=== PATIENT | female | born 1980 | race Caucasian/White ===

== ENCOUNTER 2019-06-03 12:49 | Outpatient (CLI) | payer OTHER, SELFPAY ==
[2019-06-03 16:39] LABS: TSH 2.93 uIU/mL (0.36-3.74)
== END 2019-06-03 13:09 ==
PROVIDERS: PCP Family Medicine; Visit Provider Family Medicine
DX: R53.83 Other fatigue (principal); R63.5 Abnormal weight gain; E03.8 Other specified hypothyroidism; R68.89 Other general symptoms and signs
CPT/HCPCS: 36415; 84443

== ENCOUNTER 2019-08-05 11:17 | Outpatient (CLI) | payer OTHER, SELFPAY ==
[2019-08-05 12:26] LABS: TSH 1.84 uIU/mL (0.36-3.74)
== END 2019-08-05 11:37 ==
PROVIDERS: PCP Family Medicine; Visit Provider Family Medicine
DX: E03.8 Other specified hypothyroidism (principal)
CPT/HCPCS: 36415; 84443

== ENCOUNTER 2020-01-06 14:53 | Outpatient (CLI) | payer OTHER, SELFPAY ==
[2020-01-06 15:23] LABS: Abs Immature Grans 0.02 k/cumm (0.0-0.09); Absolute Basophil Count 0.04 k/cumm (0.0-0.2); Absolute Eosinophil Count 0.16 k/cumm (0.0-0.7); Absolute Monocyte Count 0.58 k/cumm (0.11-0.7); Absolute Neutrophil Count 6.22 k/cumm (1.2-6.7); Basophils % 0.4; Eosinophils % 1.5; HCT 37.6 % (36.0-46.0); HGB 12.6 g/dL (12.0-15.5); Immature Grans % 0.2 %; Lymphocytes % 33.9; Mean Corp. HGB Concentration 33.5 g/dL (32.0-36.0); Mean Corpuscular Hemoglobin 30.5 pg (27.0-33.0); Mean Platelet Volume 9.7 fL (8.0-11.0); Monocytes % 5.5; Neutrophils % 58.5; Platelet Count 301 x1000/uL (130-400); RBC 4.13 m/cumm (4.00-5.20); RBC Distribution Width 12.2 % (11.7-14.6); White Blood Cell Count 10.62 k/cumm (4.4-10.8)
[2020-01-06 16:15] LABS: Iron 56 ug/dL (50-170)
[2020-01-06 16:43] LABS: Ferritin 43 ng/mL (8-252); TSH 3.38 uIU/mL (0.36-3.74); Vitamin B12 487 pg/mL (193-986)
[2020-01-06 16:46] LABS: Folate > 20.0 ng/mL (8.6-20.0)
== END 2020-01-06 15:13 ==
PROVIDERS: PCP Family Medicine; Visit Provider Family Medicine
DX: R53.83 Other fatigue (principal); D64.9 Anemia, unspecified
CPT/HCPCS: 36415; 82607; 82728; 82746; 83540; 84443; 85025

== ENCOUNTER 2020-03-30 01:39 | Outpatient (CLI) | payer OTHER, SELFPAY ==
--- NOTE | 2020-03-30 08:00 | ETT_ITS ---
APPROVED REPORT Exam: Exercise Treadmill Patient Location: Out-Patient Room/Bed: Stress Nurse: Ambika Boateng RN BMI: 37.11 Baseline Rhythm: Sinus Rhythm Indications: Fatigue. Medical History Cardiac Medications: Levothyroxine. Allergies: Cefpodoxime Exercise History: Physically active Lung Sounds: Clear to auscultation Heart Sounds: Regular Stress Test Details Test: Exercise stress testing was performed using a Jeffy protocol. Rest Stress HR Resting HR Supine: 70 bpm Max Heart Rate (APMHR): 182 bpm Resting HR Standin bpm Target HR (85% APMHR): 154 bpm Max HR Achieved: 164 bpm % of APMHR: 90 Recovery HR: 85 bpm HR response to stress: Normal HR response to stress BP Resting BP Supine: 122/70 mmHg Resting BP Standin/74 mmHg Max BP: 180/82 mmHg Recovery BP: 140/78 mmHg BP response to stress: Normal blood pressure response to stress. ECG Resting ECG: Sinus Rhythm Ectopy: none Stress ECG: Sinus Tachycardia ST Change: No significant ST segment changes Arrhythmia: VPC's Recovery ECG: Sinus Rhythm Recovery ST Change: No significant ST segment changes. Recovery Arrhythmia: None Clinical Reason for Termination: Fatigue Stress Symptoms: Leg Fatigue Exercise duration: 10 min30 sec Highest Stage Reached: Stage 4: 4.2 mph at 16% grade. Exercise capacity: 12.63 METs Functional Capacity: Above average capacity Stress ECG Conclusion 1. Patient exercised for 10 minutes (13 METS) rate-pressure product was 23,000. 2. Exercise was stopped due to leg fatigue. 3. There is no evidence of ischemia on the ECG portion of the exam. 4. The Elliott Score ( 11) estimates an annual cardiovascular mortality of 0% and a five year survival o f 96%. Using the Elliott Score there is a low probability of any angiographic coronary disease. Stress Test Summary STAGE Time (mins) Speed (mph) Grade (%) HR BP SYMPTOMS METS Supine 70 122/70 Standing 67 126/74 1 3 1.7 10 113 140/80 4.6 2 6 2.5 12 143 142/80 7 3 9 3.4 14 162 10.2 1 min recovery 111 180/90 3 min recovery 86 160/80 6 min recovery 85 140/78
== END 2020-03-30 01:59 ==
PROVIDERS: PCP Family Medicine; Visit Provider Family Medicine
DX: R53.83 Other fatigue (principal)
CPT/HCPCS: 93017

== ENCOUNTER 2020-09-08 03:20 | Outpatient (CLI) | payer OTHER, SELFPAY ==
[2020-09-08 07:59] LABS: Abs Immature Grans 0.04 10^3/uL (0.0-0.06); Absolute Basophil Count 0.06 10^3/uL (0.0-0.2); Absolute Eosinophil Count 0.21 10^3/uL (0.0-0.7); Absolute Lymphocyte Count 3.54 10^3/uL (1.2-3.4); Absolute Monocyte Count 0.54 10^3/uL (0.1-0.8); Absolute Neutrophil Count 4.84 10^3/uL (1.2-6.7); Basophils % 0.7; Eosinophils % 2.3; HCT 41.8 % (36.0-46.0); HGB 13.7 g/dL (11.2-15.7); Immature Grans % 0.4; Lymphocytes % 38.4; MCHC 32.8 % (32.0-36.0); MCV 91.5 fL (80-95); MPV 9.5 fL (8.0-11.0); Monocytes % 5.9; Neutrophils % 52.3; Nucleated RBC 0 %; Platelet Count 281 10^3/uL (130-400); RBC 4.57 10^6/uL (3.93-5.22); RDW 11.8 % (11.7-14.6); RDW-SD 39.5 fL; WBC 9.23 10^3/uL (4.4-10.8)
[2020-09-08 09:11] LABS: ALT 25 U/L (14-59); AST 15 U/L (15-37); Albumin 3.8 g/dL (3.4-5.0); Alkaline Phosphatase 96 U/L (46-116); Anion Gap 9.7 mmol/L (3-11); BUN 15 mg/dL (7-18); Bilirubin, Total 0.4 mg/dL (0.2-1.0); CO2 25.3 mmol/L (21.0-32.0); CREATININE 0.93 mg/dL (0.55-1.02); Calcium 9.1 mg/dL (8.5-10.1); Calculated LDL 143 mg/dL (<100); Chloride 103 mmol/L (98-107); Cholesterol 219 mg/dL (<200); Glucose 87 mg/dL (74-106); HDL Cholesterol 61 mg/dL (40-60); Potassium 4.3 mmol/L (3.5-5.1); Sodium 138 mmol/L (136-145); Total Protein 7.2 g/dL (6.4-8.2); Triglyceride 79 mg/dL (<150)
[2020-09-11 06:11] LABS: Vitamin D 25 Total 32.2 ng/ml (30-100)
== END 2020-09-08 03:40 ==
PROVIDERS: PCP Family Medicine; Visit Provider Family Medicine
DX: E03.9 Hypothyroidism, unspecified (principal); E55.9 Vitamin D deficiency, unspecified; H54.7 Unspecified visual loss; G43.109 Migraine with aura, not intractable, without status migrainosus
CPT/HCPCS: 36415; 80053; 80061; 82306; 84443; 85025

== ENCOUNTER 2020-09-18 00:28 | Outpatient (CLI) | payer OTHER, SELFPAY ==
--- NOTE | 2020-09-18 08:15 | DI.MRI_ITS ---
EXAM: MR BRAIN WO CLINICAL HISTORY: pt with new visual disturbance w and w/o headache,MIGRAINE,G43.109 TECHNIQUE: Multiplanar multisequence MRI of the brain was performed. COMPARISON: No exams were available for comparison FINDINGS: VENTRICLES AND EXTRA AXIAL SPACES: Normal in size and morphology for the patient's age. MIDLINE SHIFT: None. CEREBRAL PARENCHYMA: No focus of restricted diffusion to suggest acute infarct. No space-occupying le briana identified. HEMORRHAGE: None. BRAINSTEM/CEREBELLUM: Normal. CALVARIUM: Normal. VISUALIZED PARANASAL SINUSES/MASTOIDS:Clear. [place]: Normal flow void. PITUITARY GLAND: Unremarkable. OTHER FINDINGS: None. IMPRESSION: Unremarkable MRI of the brain. DATA REPOSITORY:
== END 2020-09-18 00:48 ==
PROVIDERS: PCP Family Medicine; Visit Provider Nurse Practitioner Adult Health
DX: G43.109 Migraine with aura, not intractable, without status migrainosus (principal); H53.9 Unspecified visual disturbance
CPT/HCPCS: 70551

== ENCOUNTER 2020-12-08 01:15 | Outpatient (CLI) | payer OTHER, SELFPAY ==
[2020-12-08 17:01] LABS: FREE T4 0.98 ng/dL (0.76-1.46)
[2020-12-08 18:02] LABS: TSH 2.45 uIU/mL (0.36-3.74)
== END 2020-12-08 01:16 | disposition home or self-care (01) ==
LOC: LBO 01:15
PROVIDERS: PCP Nurse Practitioner; Visit Provider Nurse Practitioner
DX: E03.9 Hypothyroidism, unspecified (principal)
CPT/HCPCS: 36415; 84439; 84443

== ENCOUNTER 2021-02-21 12:08 | Outpatient (REF) | payer OTHER, SELFPAY | END 2021-02-21 12:09 | disposition home or self-care (01) | LOC: LBN 12:08 | PROVIDERS: PCP Nurse Practitioner; Referring Provider Nurse Practitioner; Visit Provider Nurse Practitioner | DX: R35.0 Frequency of micturition (principal) | CPT/HCPCS: 87086 ==

== ENCOUNTER 2021-03-13 08:47 | Outpatient (CLI) | payer OTHER, SELFPAY ==
--- NOTE | 2021-03-13 08:30 | DI.RAD_ITS ---
Exam(s) XR KNEE LT 3V AP,LAT,MARGRET EXAM: XR KNEE LT 3V AP,LAT,MARGRET CLINICAL HISTORY: LEFT KNEE PAIN TECHNIQUE: COMPARISON: No exams were available for comparison FINDINGS: Three views were obtained. There is an ACL reconstruction with proximal tibial staple in place. Car tilaginous joint spaces are well preserved except for question slight narrowing medial tibiofemoral j oint space. No gross joint effusion identified on the lateral view. IMPRESSION: RADIATION DOSE DELIVERED: Total DLP
== END 2021-03-13 08:48 | disposition home or self-care (01) ==
LOC: DIORS 08:47
PROVIDERS: PCP Nurse Practitioner; Referring Provider Nurse Practitioner; Visit Provider Student in an Organized Health Care Education/Training Program
DX: M25.562 Pain in left knee (principal); Z98.890 Other specified postprocedural states
CPT/HCPCS: 73562

== ENCOUNTER 2021-03-19 02:26 | Outpatient (CLI) | payer OTHER, SELFPAY ==
--- NOTE | 2021-03-19 07:00 | DI.MRI_ITS ---
Exam(s) MR LOWER JOINT LT WO EXAM: MR LOWER JOINT LT WO CLINICAL HISTORY: Traumatic internal derangement,FAILED PT,M23.92 TECHNIQUE: Multiplanar multisequence MRI of the knee was performed. COMPARISON: CR XR KNEE LT 3V AP,LAT,MARGRET from 03/13/2021 FINDINGS: EFFUSION: Small amount of increased joint fluid. There is tiny chu cyst in popliteal fossa MARROW:There is artifact from tibial staple at the metaphysis-diaphysis junction in this patient has had prior ACL surgery. Small benign appearing bone lesion in the distal diaphysis of the femur is pr obably an enchondroma. There is no surrounding marrow edema. PATELLOFEMORAL COMPARTMENT: The quadriceps tendon is intact. The patellar ligament is intact. There is some signal abnormality in the retropatellar cartilage over the lateral facet with small fis sures therein. No abnormal intraosseous signal in the posterior patella. Cartilage over the medial facet is preserved.There is no intraosseous signal to suggest recent patellar dislocation. There are no patellar retinacular tears. CRUCIATE LIGAMENTS: There is an anterior cruciate ligament graft which appears intact. No obvious im pingement at the level of the inner aspect of the femoral condyles.The posterior cruciate ligament is intact. MEDIAL COMPARTMENT/MEDIAL MENISCUS: There are no tears of the medial meniscus evident.. There are no chondral defects, osteochondral defects, subarticular marrow edema, nor osteophytes evid ent. MEDIAL COLLATERAL LIGAMENT: Intact LATERAL COMPARTMENT/LATERAL MENISCUS: There is no evidence of lateral meniscal tear.Small focus of hurd barticular signal abnormality seen in the posterior aspect of the lateral tibial plateau consistent w ith small degenerative cyst at this level. ILIOTIBIAL BAND: Intact LATERAL COLLATERAL LIGAMENT COMPLEX: The fibular collateral ligament is intact. The biceps femoris t endon is intact.Popliteus muscle and tendon are intact. IMPRESSION: 1. Anterior cruciate graft appears intact. It does not display obvious abnormal signal. PCL is inta ct. MCL is intact. 2. No obvious meniscal tears evident. No obvious degenerative changes. No osteochondral defects. H owever, there is a small subarticular focus sub lab mallet E in the posterior aspect of the lateral t ibial plateau which probably developing degenerative subarticular cyst at this level. 3. Some signal abnormality and thinning in the retropatellar cartilage is noted over the lateral face t. 4. Small joint effusion and tiny Chu's cyst. DATA REPOSITORY:
== END 2021-03-19 02:46 ==
PROVIDERS: PCP Nurse Practitioner; Visit Provider Student in an Organized Health Care Education/Training Program
DX: M25.562 Pain in left knee (principal); M23.92 Unspecified internal derangement of left knee; M25.462 Effusion, left knee; M71.22 Synovial cyst of popliteal space [Baker], left knee
CPT/HCPCS: 73721

== ENCOUNTER 2022-02-11 02:40 | Outpatient (CLI) | payer OTHER, SELFPAY ==
[2022-02-11 08:59] LABS: Total Iron Binding Capacity 259 ug/dL (250-450)
[2022-02-11 09:25] LABS: ALT 18 U/L (14-59); AST 13 U/L (15-37); Albumin 3.9 g/dL (3.4-5.0); Alkaline Phosphatase 92 U/L (46-116); Anion Gap 10.9 mmol/L (3-11); BUN 18 mg/dL (7-18); Bilirubin, Total 0.5 mg/dL (0.2-1.0); CO2 25.1 mmol/L (21.0-32.0); CREATININE 0.9 mg/dL (0.55-1.02); Calcium 8.9 mg/dL (8.5-10.1); Calculated LDL 96 mg/dL (<100); Chloride 106 mmol/L (98-107); Cholesterol 159 mg/dL (<200); Ferritin 91 ng/mL (8-252); Glucose 80 mg/dL (74-106); HDL Cholesterol 55 mg/dL (40-60); Potassium 4.2 mmol/L (3.5-5.1); Sodium 142 mmol/L (136-145); TSH (W/Ref FT4) 2.38 uIU/mL (0.36-3.74); Total Protein 7.1 g/dL (6.4-8.2); Triglyceride 44 mg/dL (<150); Vitamin B12 490 pg/mL (193-986)
== END 2022-02-11 02:41 | disposition home or self-care (01) ==
LOC: LBO 02:40
PROVIDERS: PCP Nurse Practitioner; Visit Provider Nurse Practitioner
DX: I10 Essential (primary) hypertension (principal); E03.9 Hypothyroidism, unspecified; R53.83 Other fatigue
CPT/HCPCS: 36415; 80053; 80061; 82607; 82728; 83550; 84443

== ENCOUNTER 2022-11-11 16:02 | Outpatient (CLI) | payer OTHER, SELFPAY ==
[2022-11-11 15:59] LABS: Abs Immature Grans 0.05 10^3/uL (0.0-0.06); Absolute Basophil Count 0.06 10^3/uL (0.0-0.2); Absolute Lymphocyte Count 4.42 10^3/uL (1.2-3.4); Absolute Monocyte Count 0.58 10^3/uL (0.1-0.8); Basophils % 0.5; Eosinophils % 0.8; HCT 39.9 % (36.0-46.0); HGB 13.4 g/dL (11.2-15.7); Immature Grans % 0.4; Lymphocytes % 37.3; MCH 30.1 pg (27.0-33.0); MCHC 33.6 % (32.0-36.0); MCV 90 fL (80-95); MPV 9.4 fL (8.0-11.0); Monocytes % 4.9; Neutrophils % 56.1; Platelet Count 276 10^3/uL (130-400); RBC 4.45 10^6/uL (3.93-5.22); RDW 11.9 % (11.7-14.6); RDW-SD 38.5 fL; WBC 11.85 10^3/uL (4.4-10.8)
[2022-11-11 16:02] LABS: Absolute Eosinophil Count 0.09 10^3/uL (0.0-0.7); Absolute Neutrophil Count 6.65 10^3/uL (1.2-6.7)
[2022-11-11 16:38] LABS: Hemoglobin A1C 4.9 % (<5.7)
[2022-11-11 16:50] LABS: ALT 21 U/L (14-59); AST 16 U/L (15-37); Albumin 4.2 g/dL (3.4-5.0); Alkaline Phosphatase 106 U/L (46-116); Anion Gap 10.2 mmol/L (3-11); BUN 19 mg/dL (7-18); Bilirubin, Total 0.3 mg/dL (0.2-1.0); CO2 25.8 mmol/L (21.0-32.0); CREATININE 1.1 mg/dL (0.55-1.02); Chloride 103 mmol/L (98-107); Estimated GFR 64.74 (mL/min/1.73m2); Glucose 83 mg/dL (74-106); Sodium 139 mmol/L (136-145); TSH (W/Ref FT4) 3.28 uIU/mL (0.36-3.74); Total Protein 7.6 g/dL (6.4-8.2)
[2022-11-11 17:07] LABS: Vitamin D 25 Total 23.3 ng/mL (30-100)
[2022-11-13 10:42] LABS: Lyme Ab w Rflx to Lyme Confirm Negative (Negative)
[2022-11-13 16:47] LABS: Lab Add On Test DONE
[2022-11-13 17:05] LABS: FREE T4 1.13 ng/dL (0.76-1.46)
[2022-11-14 17:32] LABS: Anaplasma phagocytophilum Negative (Negative); B. miyamotoi PCR Negative (Negative); Babesia divergens/MO-1 Negative (Negative); Babesia duncani Negative (Negative); Babesia microti Negative (Negative); Ehrlichia chaffeensis Negative (Negative); Ehrlichia ewingii/canis Negative (Negative); Ehrlichia muris eauclairensis Negative (Negative)
[2022-11-14 18:37] LABS: T3,Free 3.6 pg/mL (2.8-5.3)
== END 2022-11-11 16:03 | disposition home or self-care (01) ==
LOC: LBO 16:02
PROVIDERS: PCP Nurse Practitioner; Visit Provider Nurse Practitioner
DX: E03.9 Hypothyroidism, unspecified (principal); E55.9 Vitamin D deficiency, unspecified; E66.9 Obesity, unspecified; I10 Essential (primary) hypertension; L65.9 Nonscarring hair loss, unspecified; R53.83 Other fatigue; J45.909 Unspecified asthma, uncomplicated
CPT/HCPCS: 36415; 80053; 82306; 87798; 83036; 83615; 84439; 84443; 84481; 85025; 86618

== ENCOUNTER 2022-12-13 02:06 | Outpatient (CLI) | payer OTHER, SELFPAY ==
[2022-12-13 09:21] LABS: FREE T4 1.16 ng/dL (0.76-1.46); TSH 1.48 uIU/mL (0.36-3.74)
[2022-12-13 19:18] LABS: T3,Free 4.2 pg/mL (2.8-5.3)
== END 2022-12-13 02:07 | disposition home or self-care (01) ==
LOC: LBO 02:06
PROVIDERS: PCP Nurse Practitioner; Visit Provider Nurse Practitioner
DX: E03.9 Hypothyroidism, unspecified (principal); E55.9 Vitamin D deficiency, unspecified
CPT/HCPCS: 36415; 82306; 84439; 84443; 84481

== ENCOUNTER 2022-12-31 02:35 | Outpatient (CLI) | payer OTHER, SELFPAY ==
[2022-12-31 09:02] LABS: Hemoglobin A1C 4.9 % (<5.7)
[2022-12-31 10:42] LABS: Vitamin B12 687 pg/mL (193-986)
[2022-12-31 17:55] LABS: CRP, High Sensitivity 8.95 mg/L (See Note)
[2022-12-31 19:26] LABS: Thyroglobulin Antibody 108 U/mL (<=60); Thyroperoxidase Antibody 31 U/mL (<=60)
[2023-01-01 09:25] LABS: Homocysteine 11.2 umol/L (5.0-13.9)
[2023-01-01 11:26] LABS: IgA 171 mg/dL (85-499); IgG 1014 mg/dL (610-1616)
[2023-01-01 20:43] LABS: Tissue Transglutaminase Ab IgA <1.2 U/mL
[2023-01-02 23:13] LABS: Gliadin (Deamidated) Ab, IgA <10.0 U; Gliadin (Deamidated) Ab, IgG <10.0 U
[2023-01-08 15:22] LABS: Resin T3 Uptake 30 % (22.5-37.0)
[2023-01-08 15:30] LABS: Resin T3 Uptake Ratio 1.03 (0.75-1.23)
== END 2022-12-31 02:36 | disposition home or self-care (01) ==
PROVIDERS: PCP Nurse Practitioner; Visit Provider Naturopath
DX: E03.9 Hypothyroidism, unspecified (principal); R14.3 Flatulence; K59.00 Constipation, unspecified
CPT/HCPCS: 36415; 82784; 83090; 83516; 84999; 86141; 82607; 83036; 86255; 86376; 86800

== ENCOUNTER 2023-01-21 03:03 | Outpatient (CLI) | payer OTHER, SELFPAY ==
[2023-01-23 15:18] LABS: TB Interpretation Negative (Negative); TB1 Ag minus Nil 0.02 IU/ml; TB2 Ag minus Nil 0.04 IU/mL
[2023-01-24 10:34] LABS: Hepatitis A Antibody IgM Negative (Negative); Hepatitis B Core Antibody Negative (Negative); Hepatitis B surface Ag Negative (Negative); Hepatitis C Ab w Rflx HCV PCR Negative (Negative)
== END 2023-01-21 03:04 | disposition home or self-care (01) ==
LOC: LBO 03:03
PROVIDERS: PCP Nurse Practitioner; Visit Provider Dermatology
DX: L63.8 Other alopecia areata (principal); Z79.899 Other long term (current) drug therapy
CPT/HCPCS: 36415; 86704; 86706; 86709; 86803; 87340; 86480

== ENCOUNTER 2023-03-06 01:39 | Outpatient (CLI) | payer OTHER, SELFPAY ==
[2023-03-06 15:03] LABS: Abs Immature Grans 0.02 10^3/uL (0.0-0.06); Absolute Basophil Count 0.05 10^3/uL (0.0-0.2); Absolute Eosinophil Count 0.18 10^3/uL (0.0-0.7); Absolute Lymphocyte Count 3.26 10^3/uL (1.2-3.4); Absolute Monocyte Count 0.54 10^3/uL (0.1-0.8); Absolute Neutrophil Count 6.03 10^3/uL (1.2-6.7); Basophils % 0.5; Eosinophils % 1.8; HCT 41.1 % (36.0-46.0); HGB 13.7 g/dL (11.2-15.7); Immature Grans % 0.2; Lymphocytes % 32.3; MCH 30.9 pg (27.0-33.0); MCHC 33.3 % (32.0-36.0); MCV 93 fL (80-95); MPV 9.8 fL (8.0-11.0); Monocytes % 5.4; Neutrophils % 59.8; Platelet Count 239 10^3/uL (130-400); RBC 4.44 10^6/uL (3.93-5.22); RDW 12.1 % (11.7-14.6); RDW-SD 41.1 fL; WBC 10.08 10^3/uL (4.4-10.8)
[2023-03-06 16:03] LABS: Anion Gap 9.5 mmol/L (3-11); BUN 15 mg/dL (7-18); C-Reactive Protein 1.11 mg/dL (0.0-0.3); CO2 25.5 mmol/L (21.0-32.0); CREATININE 1.1 mg/dL (0.55-1.02); Calcium 9.3 mg/dL (8.5-10.1); Chloride 103 mmol/L (98-107); Estimated GFR 64.74 (mL/min/1.73m2); Glucose 105 mg/dL (74-106); Potassium 3.8 mmol/L (3.5-5.1); Sodium 138 mmol/L (136-145)
[2023-03-06 16:16] LABS: FREE T4 0.93 ng/dL (0.76-1.46); TSH 1.14 uIU/mL (0.36-3.74)
[2023-03-06 21:58] LABS: T3,Free 4.4 pg/mL (2.8-5.3)
[2023-03-06 22:16] LABS: Fibrinogen 452 mg/dL (171-384)
== END 2023-03-06 01:40 | disposition home or self-care (01) ==
LOC: LBO 01:39
PROVIDERS: Internal Medicine; Naturopath; PCP Nurse Practitioner; Visit Provider Nurse Practitioner
DX: E66.8 Other obesity; E03.9 Hypothyroidism, unspecified; R79.82 Elevated C-reactive protein (CRP)
CPT/HCPCS: 36415; 80048; 85384; 84439; 84443; 84481; 85025; 86140

== ENCOUNTER 2023-06-19 05:17 | Outpatient (CLI) | payer OTHER, SELFPAY ==
[2023-06-19 11:11] LABS: FREE T4 0.86 ng/dL (0.76-1.46); TSH 1.49 uIU/mL (0.36-3.74)
[2023-06-19 18:42] LABS: Fibrinogen 425 mg/dL (171-384)
[2023-06-19 19:02] LABS: T3,Free 3.5 pg/mL (2.8-5.3)
[2023-06-19 19:45] LABS: Thyroglobulin Antibody <15 U/mL (<=60)
[2023-06-20 09:00] LABS: Homocysteine 9.5 umol/L (5.0-13.9)
[2023-06-23 18:48] LABS: Corn-Food IgE <0.10 kU/L (<0.70); Milk, IgE <0.10 kU/L (<0.70)
== END 2023-06-19 05:18 | disposition home or self-care (01) ==
LOC: LBO 05:17
PROVIDERS: PCP Nurse Practitioner; Visit Provider Naturopath
DX: E06.9 Thyroiditis, unspecified (principal); E66.8 Other obesity; R77.8 Other specified abnormalities of plasma proteins; E72.11 Homocystinuria; L63.9 Alopecia areata, unspecified
CPT/HCPCS: 36415; 83090; 85384; 86003; 84439; 84443; 84481; 86800

== ENCOUNTER 2023-08-01 03:29 | Outpatient (CLI) | payer OTHER, SELFPAY ==
[2023-08-01 09:42] LABS: FREE T4 0.82 ng/dL (0.76-1.46); TSH 0.32 uIU/mL (0.36-3.74)
[2023-08-01 18:22] LABS: T3,Free 3.5 pg/mL (2.8-5.3)
== END 2023-08-01 03:30 | disposition home or self-care (01) ==
LOC: LBO 03:29
PROVIDERS: PCP Nurse Practitioner; Visit Provider Internal Medicine
DX: E03.9 Hypothyroidism, unspecified (principal)
CPT/HCPCS: 36415; 84439; 84443; 84481

== ENCOUNTER 2023-09-15 04:17 | Outpatient (CLI) | payer OTHER, SELFPAY ==
[2023-09-15 22:28] LABS: Fibrinogen 463 mg/dL (171-384)
== END 2023-09-15 04:18 | disposition home or self-care (01) ==
LOC: LBO 04:17
PROVIDERS: PCP Nurse Practitioner; Visit Provider Naturopath
DX: R77.8 Other specified abnormalities of plasma proteins (principal)
CPT/HCPCS: 36415; 85384

== ENCOUNTER 2023-11-21 02:23 | Outpatient (CLI) | payer OTHER, SELFPAY ==
[2023-11-21 15:08] LABS: Vitamin D 25 Total 28.7 ng/mL (30-100)
[2023-11-21 22:29] LABS: CRP, High Sensitivity >15.00 mg/L (See Note)
== END 2023-11-21 02:24 | disposition home or self-care (01) ==
LOC: LBO 02:24
PROVIDERS: PCP Nurse Practitioner; Visit Provider Naturopath
DX: E55.9 Vitamin D deficiency, unspecified (principal); R79.82 Elevated C-reactive protein (CRP)
CPT/HCPCS: 36415; 82306; 86141

== ENCOUNTER 2024-02-10 10:49 | Outpatient (CLI) | payer OTHER, SELFPAY ==
[2024-02-10 15:28] LABS: C-Reactive Protein 2.27 mg/dL (<or=0.5)
[2024-02-10 22:28] LABS: Fibrinogen 412 mg/dL (171-384)
== END 2024-02-10 10:50 | disposition home or self-care (01) ==
LOC: LBO 10:50
PROVIDERS: PCP Nurse Practitioner; Visit Provider Naturopath
DX: E55.9 Vitamin D deficiency, unspecified (principal); R79.82 Elevated C-reactive protein (CRP)
CPT/HCPCS: 36415; 85384; 86140

== ENCOUNTER 2024-02-24 04:59 | Outpatient (CLI) | payer OTHER, SELFPAY ==
[2024-02-24 09:22] LABS: Calculated LDL 103 mg/dL (<100); Cholesterol 171 mg/dL (<200); HDL Cholesterol 56 mg/dL (40-60); Triglyceride 60 mg/dL (<150)
[2024-02-24 10:49] LABS: FREE T4 0.73 ng/dL (0.76-1.46)
[2024-02-24 18:23] LABS: T3,Free 3.3 pg/mL (2.8-5.3)
[2024-02-24 18:37] LABS: Thyroglobulin Antibody 201 U/mL (<=60); Thyroperoxidase Antibody <28 U/mL (<=60)
== END 2024-02-24 05:00 | disposition home or self-care (01) ==
LOC: LBO 04:59
PROVIDERS: Internal Medicine; Naturopath; PCP Nurse Practitioner; Visit Provider Nurse Practitioner
DX: Z13.220 Encounter for screening for lipoid disorders (principal)
CPT/HCPCS: 36415; 80061; 84439; 84481; 86376; 86800

== ENCOUNTER 2024-03-25 05:11 | Outpatient (CLI) | payer OTHER, SELFPAY ==
[2024-03-25 08:30] LABS: FREE T4 0.72 ng/dL (0.76-1.46); TSH 1.07 uIU/Ml (0.36-3.74)
== END 2024-03-25 05:12 | disposition home or self-care (01) ==
LOC: LBO 05:11
PROVIDERS: PCP Nurse Practitioner; Visit Provider Internal Medicine
DX: E03.9 Hypothyroidism, unspecified (principal)
CPT/HCPCS: 36415; 84439; 84443

== ENCOUNTER 2024-07-08 03:39 | Outpatient (CLI) | payer OTHER, SELFPAY ==
[2024-07-08 15:17] LABS: Calcium 9.2 mg/dL (8.5-10.1)
[2024-07-08 22:06] LABS: CRP, High Sensitivity 14.85 mg/L (See Note)
[2024-07-08 22:37] LABS: Fibrinogen 489 mg/dL (171-384)
[2024-07-08 22:38] LABS: Parathyroid Hormone,Intact 46 pg/mL (19-88)
== END 2024-07-08 03:40 | disposition home or self-care (01) ==
PROVIDERS: PCP Nurse Practitioner; Visit Provider Naturopath
DX: R93.89 Abnormal findings on diagnostic imaging of other specified body structures (principal); R79.82 Elevated C-reactive protein (CRP); Z68.34 Body mass index [BMI] 34.0-34.9, adult; R77.8 Other specified abnormalities of plasma proteins
CPT/HCPCS: 36415; 85384; 86141; 82310; 83970

== ENCOUNTER 2024-07-20 03:10 | Outpatient (CLI) | payer OTHER, SELFPAY ==
[2024-07-20 10:36] LABS: ALT 22 U/L (14-59); AST 14 U/L (15-37); Albumin 3.6 g/dL (3.4-5.0); Alkaline Phosphatase 72 U/L (46-116); Anion Gap 5.4 mmol/L (3-11); BUN 15 mg/dL (7-18); Bilirubin, Total 0.34 mg/dL (0.2-1.0); CO2 28.6 mmol/L (21.0-32.0); CREATININE 0.8 mg/dL (0.55-1.02); Calcium 9.1 mg/dL (8.5-10.1); Chloride 104 mmol/L (98-107); Estimated GFR 94.28 (mL/min/1.73m2); Glucose 86 mg/dL (74-106); Potassium 4.3 mmol/L (3.5-5.1); Sodium 138 mmol/L (136-145); TSH 1.12 uIU/Ml (0.36-3.74); Total Protein 6.8 g/dL (6.4-8.2)
[2024-07-20 11:16] LABS: Vitamin D 25 Total 42.7 ng/mL (30-100)
[2024-07-20 21:06] LABS: T3,Free 3.4 pg/mL (2.8-5.3)
[2024-07-20 22:20] LABS: Parathyroid Hormone,Intact 27 pg/mL (19-88)
== END 2024-07-20 03:11 | disposition home or self-care (01) ==
LOC: LBO 03:10
PROVIDERS: PCP Nurse Practitioner; Visit Provider Internal Medicine
DX: E21.5 Disorder of parathyroid gland, unspecified (principal); E03.9 Hypothyroidism, unspecified
CPT/HCPCS: 36415; 80053; 82306; 83525; 83970; 84439; 84443; 84481

== ENCOUNTER 2024-09-17 01:57 | Outpatient (CLI) | payer OTHER, SELFPAY ==
[2024-09-17 09:41] LABS: ESR 26 mm/hr (0-20)
[2024-09-17 18:30] LABS: Homocysteine 10.8 umol/L (5.0-13.9)
[2024-09-20 14:46] LABS: ANA Interpretation Negative (Negative)
== END 2024-09-17 01:58 | disposition home or self-care (01) ==
LOC: LBO 01:57
PROVIDERS: PCP Nurse Practitioner; Visit Provider Naturopath
DX: R79.82 Elevated C-reactive protein (CRP) (principal); E72.11 Homocystinuria; R77.8 Other specified abnormalities of plasma proteins
CPT/HCPCS: 36415; 83090; 85652; 86038

== ENCOUNTER 2024-11-26 02:17 | Outpatient (CLI) | payer OTHER, SELFPAY ==
[2024-11-26 10:01] LABS: ESR 20 mm/hr (0-20)
[2024-11-26 10:33] LABS: C-Reactive Protein 1.57 mg/dL (<or=0.5)
[2024-11-26 17:18] LABS: Fibrinogen 536 mg/dL (171-384)
== END 2024-11-26 02:18 | disposition home or self-care (01) ==
LOC: LBO 02:17
PROVIDERS: PCP Nurse Practitioner; Visit Provider Naturopath
DX: R79.82 Elevated C-reactive protein (CRP) (principal); R77.8 Other specified abnormalities of plasma proteins; L63.9 Alopecia areata, unspecified
CPT/HCPCS: 36415; 85384; 85652; 86140

== ENCOUNTER 2025-02-17 01:06 | Outpatient (CLI) | payer OTHER, SELFPAY ==
[2025-02-17 08:07] LABS: Abs Immature Grans 0.03 10^3/uL (0.0-0.06); Absolute Basophil Count 0.06 10^3/uL (0.0-0.2); Absolute Eosinophil Count 0.18 10^3/uL (0.0-0.7); Absolute Lymphocyte Count 2.32 10^3/uL (1.2-3.4); Absolute Monocyte Count 0.41 10^3/uL (0.1-0.8); Absolute Neutrophil Count 5.81 10^3/uL (1.2-6.7); Basophils % 0.7 %; HCT 39.8 % (36.0-46.0); HGB 13.3 g/dL (11.2-15.7); Immature Grans % 0.3 %; Lymphocytes % 26.3 %; MCH 30.4 pg (27.0-33.0); MCHC 33.4 % (32.0-36.0); MCV 91 fL (80-95); Monocytes % 4.7 %; Platelet Count 253 10^3/uL (130-400); RBC 4.38 10^6/uL (3.93-5.22); RDW 11.9 % (11.7-14.6); RDW-SD 39.8 fL; WBC 8.81 10^3/uL (4.4-10.8)
[2025-02-17 09:07] LABS: Calculated LDL 104 mg/dL (<100); Cholesterol 172 mg/dL (<200); HDL Cholesterol 58 mg/dL (>or=50); TSH (W/Ref FT4) 1.92 uIU/mL (0.36-3.74); Triglyceride 51 mg/dL (<150)
[2025-02-17 09:19] LABS: ALT 22 U/L (14-59); AST 13 U/L (15-37); Albumin 3.8 g/dL (3.4-5.0); Alkaline Phosphatase 81 U/L (46-116); Anion Gap 10.1 mmol/L (3-11); BUN 17 mg/dL (7-18); Bilirubin, Total 0.5 mg/dL (0.2-1.0); CO2 25.9 mmol/L (21.0-32.0); CREATININE 0.9 mg/dL (0.55-1.02); Calcium 9.2 mg/dL (8.5-10.1); Chloride 106 mmol/L (98-107); Estimated GFR 81.35 (mL/min/1.73m2); Glucose 96 mg/dL (74-106); Potassium 4.4 mmol/L (3.5-5.1); Sodium 142 mmol/L (136-145); Total Protein 6.9 g/dL (6.4-8.2); Vitamin D 25 Total 47 ng/mL (30-100)
[2025-02-17 17:48] LABS: Fibrinogen 451 mg/dL (171-384)
[2025-02-17 18:00] LABS: CRP, High Sensitivity >15.00 mg/L (See Note)
[2025-02-18 10:52] LABS: Insulin 16.6 uIU/mL (<29.0)
[2025-02-19 15:39] LABS: Apolipoprotein B, S 78 mg/dL
== END 2025-02-17 01:07 | disposition home or self-care (01) ==
LOC: LBO 01:06
PROVIDERS: PCP Nurse Practitioner; Visit Provider Naturopath
DX: L65.9 Nonscarring hair loss, unspecified (principal); E03.9 Hypothyroidism, unspecified; Z13.220 Encounter for screening for lipoid disorders; E55.9 Vitamin D deficiency, unspecified; J45.909 Unspecified asthma, uncomplicated; I10 Essential (primary) hypertension
CPT/HCPCS: 36415; 80053; 80061; 82172; 82306; 85384; 86141; 83525; 84443; 84481; 85025

== ENCOUNTER 2025-06-10 08:58 | Outpatient (CLI) | payer OTHER, SELFPAY ==
[2025-06-10 15:42] LABS: C-Reactive Protein 1.70 mg/dL (<or=0.5)
[2025-06-10 16:27] LABS: Vitamin D 25 Total 56 ng/mL (30-100)
== END 2025-06-10 08:59 | disposition home or self-care (01) ==
LOC: LBO 08:59
PROVIDERS: PCP Nurse Practitioner; Visit Provider Naturopath
DX: R79.82 Elevated C-reactive protein (CRP) (principal); E88.819 Insulin resistance, unspecified; E66.812 Obesity, class 2; E06.3 Autoimmune thyroiditis
CPT/HCPCS: 36415; 82306; 86140; 86376; 86800

== ENCOUNTER 2025-06-28 17:54 | Outpatient (REF) | payer OTHER, SELFPAY ==
--- NOTE | 2025-06-28 16:25 | PAPFT_PTH ---
PATIENT: Sahra Cain LOC: [facility] U#:[id number] AGE/SX: 44/F ROOM: RE06/28/[address]: Shey Ibarra DO : 1980 BED: DIS: 06/28/2025 SPEC #: [id number] RECD: 06/28/25 18:01 STATUS: NAINA REWilly #: [id number] ANITA: 06/28/25 16:[address]: Shey Ibarra DEPT: [facility] Cytology RECD BY: Jenifer Bland ENTERED: 06/28/25 18:01 SP TYPE: PAPFT YARIEL DR: Karin So APRN Tissues: 1 - CX/ENDOCX FOR PAP SMEARS Procedures: PAP THIN PREP/[facility] Screening HPV DNA PROBE Comments: [id number] (HPV 16 & 18/45)
== END 2025-06-28 17:55 | disposition home or self-care (01) ==
LOC: LBN 17:54
PROVIDERS: PCP Nurse Practitioner; Visit Provider Obstetrics & Gynecology
DX: Z12.4 Encounter for screening for malignant neoplasm of cervix (principal)
CPT/HCPCS: 88142; 87624